=== PATIENT | male | born 1935 | race Caucasian/White ===

== ENCOUNTER 2020-03-24 21:21 | Inpatient (IN) ==
[2020-03-24 22:08] LABS: VBG HCO3 27 mEq/L (21-27); VBG PCO2 49 mmHg (41-51); VBG PH 7.35 pH Units (7.32-7.42); VBG PO2 38 mmHg (25-50)
[2020-03-24 22:10] LABS: Basophils % 0.1 %; Eosinophils % 0.1 %; Hemoglobin 15.7 g/dL (12.9-16.9); Immature Granulocytes % 0.4 % (0-4); Lymphocytes # 1.1 K/mcL (0.6-4.6); Lymphocytes % 6.7 %; Mean Corpuscular HGB Conc 32.7 g/dL (31.6-35.5); Mean Corpuscular Hemoglobin 31.3 pg (28.0-33.3); Mean Corpuscular Volume 95.6 fL (83.0-100.0); Mean Platelet Volume 11.5 fL (9.4-12.4); Monocytes # 0.9 K/mcL (0.0-1.3); Monocytes % 5.8 %; Neutrophils # 13.9 K/mcL (1.6-8.9); Platelet Count 172 K/mcL (140-400); Red Blood Count 5.02 M/mcL (4.19-5.50); Red Cell Distribution Width 12.9 % (11.5-14.5); Segmented Neutrophils % 86.9 %
[2020-03-24 22:11] LABS: INR 1.3; Prothrombin Time 14.3 Seconds (9.4-12.1)
[2020-03-24 22:14] LABS: Activated Partial Thrombo Time 30.3 Seconds (26.0-36.0)
[2020-03-24 22:19] LABS: Amphetamine Screen,Urine Negative ng/mL (Cutoff=1000); Barbiturate Screen,Urine Negative ng/mL (Cutoff=200); Benzodiazepines Screen,Urine Positive ng/mL (Cutoff=200); Cannabinoid Screen,Urine Negative ng/mL (Cutoff = 50); Cocaine Screen,Urine Negative ng/mL (Cutoff= 300); Opiate Screen,Urine Negative ng/mL (Cutoff=300); Phencyclidine Screen,Urine Negative ng/mL (Cutoff=25)
[2020-03-24 22:22] LABS: Bilirubin,Urine Negative (Negative); Blood,Urine Negative (Negative); Clarity,Urine Clear (Clear); Color,Urine Yellow (Yellow); Glucose,Urine (UA) 500 mg/dL (Normal); Ketones,Urine Negative (Negative); Leukocyte Esterase,Urine Trace (Negative); Nitrite,Urine Positive (Negative); Protein,Urine Negative (Neg-Trace); Specific Gravity,Urine 1.019 (1.010-1.025); Urobilinogen,Urine Normal (Normal)
[2020-03-24 22:24] LABS: Alkaline Phosphatase 80 Units/L (34-104); Aspartate Amino Transferase 11 Units/L (13-39); BUN/Creatinine Ratio 15 (6-26); Bilirubin,Direct 0.3 mg/dL (0.0-0.2); Bilirubin,Indirect 0.8 mg/dL (0.0-1.0); Bilirubin,Total 1.1 mg/dL (0.3-1.0); Blood Urea Nitrogen 13 mg/dL (8-23); Calcium 9.4 mg/dL (8.6-10.3); Carbon Dioxide 25 mEq/L (23-29); Chloride 103 mEq/L (98-107); Glucose 123 mg/dL (70-105); Osmolality,Calculated 287 (280-300); Potassium 3.7 mEq/L (3.5-5.1); Sodium 138 mEq/L (136-145); eGFR For African Americans > 60 (> 60); eGFR For Non-African Americans > 60 (> 60)
[2020-03-24 22:25] LABS: Alanine Aminotransferase 4 Units/L (7-52); Albumin 4.2 g/dL (3.5-5.7); Albumin/Globulin Ratio 1.4 (1.1-2.2); Creatine Kinase 60 Units/L (30-223); Ethanol < 10 mg/dL (Less than 10); Total Protein 7.2 g/dL (6.4-8.9); Troponin I < 0.03 ng/mL (< 0.04)
[2020-03-24 22:38] LABS: Thyroid Stimulating Hormone 1.435 mcIU/mL (0.340-5.600)
[2020-03-24] MEDS ORDERED: cefTRIAXone 1,000 MG in 0.9 % Sodium Chloride Mini Bag 100 ML IVPB ONE (22:54)
[2020-03-24] MEDS ORDERED: 0.9 % Sodium Chloride 1,000 ML IV ONE (22:54)
[2020-03-24 23:58] LABS: Adenovirus Not Detected (Not Detect); Bordetella Pertussis Not Detected (Not Detect); Coronavirus 229E Not Detected (Not Detect); Coronavirus HKU1 Not Detected (Not Detect); Coronavirus NL63 Not Detected (Not Detect); Coronavirus OC43 Not Detected (Not Detect); Human Metapneumovirus Not Detected (Not Detect); Human Rhinovirus/Enterovirus Not Detected (Not Detect); Influenza A Subtype 2009 H1 Not Detected (Not Detect); Influenza B Not Detected (Not Detect); Parainfluenza Virus 1 Not Detected (Not Detect); Parainfluenza Virus 2 Not Detected (Not Detect); Parainfluenza Virus 3 Not Detected (Not Detect); Parainfluenza Virus 4 Not Detected (Not Detect); Respiratory Syncytial Virus Not Detected (Not Detect)
[2020-03-24 23:59] LABS: Chlamydophila pneumoniae Not Detected (Not Detect); Mycoplasma pneumoniae Not Detected (Not Detect)
[2020-03-25] MEDS ORDERED: Naloxone 0.4 MG/ML INJ IVP PRN (00:16)
[2020-03-25] MEDS ORDERED: D5% in Water 1,000 ML IVC PRN (00:27)
[2020-03-25] MEDS ORDERED: Dextrose Gel 15 GM/37.5 ML TUBE PO PRN ×2 (00:27)
[2020-03-25] MEDS ORDERED: *HR* Dextrose 50 % in Water (Vial) 50 ML VIAL IVP PRN (00:27)
[2020-03-25] MEDS ORDERED: 0.9 % Sodium Chloride 1,000 ML IVC SCH (00:30)
[2020-03-25] MEDS: Insulin LISPRO 300 UNITS/3 ML VIAL SQ SCH ×4 (02:13→16:19)
[2020-03-25 02:31] LABS: Basophils # 0.1 K/mcL (0.0-0.2); Basophils % 0.3 %; Eosinophils % 0.1 %; Immature Granulocytes % 0.4 % (0-4); Lymphocytes # 1.6 K/mcL (0.6-4.6); Lymphocytes % 10.4 %; Mean Corpuscular Hemoglobin 30.7 pg (28.0-33.3); Mean Corpuscular Volume 95.9 fL (83.0-100.0); Mean Platelet Volume 11.6 fL (9.4-12.4); Platelet Count 165 K/mcL (140-400); Red Blood Count 4.59 M/mcL (4.19-5.50); Red Cell Distribution Width 12.9 % (11.5-14.5); Segmented Neutrophils % 82.8 %; White Blood Count 15.7 K/mcL (4.3-11.1)
[2020-03-25 02:41] LABS: Hemoglobin 14.1 g/dL (12.9-16.9)
[2020-03-25 02:45] LABS: BUN/Creatinine Ratio 14 (6-26); Blood Urea Nitrogen 11 mg/dL (8-23); Calcium 8.6 mg/dL (8.6-10.3); Carbon Dioxide 25 mEq/L (23-29); Chloride 106 mEq/L (98-107); Glucose 107 mg/dL (70-105); Osmolality,Calculated 288 (280-300); Potassium 3.6 mEq/L (3.5-5.1); Sodium 139 mEq/L (136-145); eGFR For African Americans > 60 (> 60); eGFR For Non-African Americans > 60 (> 60)
[2020-03-25] MEDS: *HR* Heparin 5,000 UNIT/ML VIAL SQ SCH ×3 (06:07→23:01)
[2020-03-25] MEDS: cefTRIAXone 1,000 MG in 0.9 % Sodium Chloride Mini Bag 100 ML IVPB SCH (10:45)
[2020-03-25] MEDS: ALPRAZolam 1 MG TABLET PO PRN (11:06)
[2020-03-25] MEDS ORDERED: cefTRIAXone 1,000 MG in 0.9 % Sodium Chloride Mini Bag 100 ML IVPB SCH (22:00)
[2020-03-26] MEDS: *HR* Heparin 5,000 UNIT/ML VIAL SQ SCH ×3 (05:24→19:33)
[2020-03-26 05:37] LABS: Eosinophils % 1.3 %; Hematocrit 44.1 % (37.5-50.1); Hemoglobin 14.5 g/dL (12.9-16.9); Immature Granulocytes % 0.3 % (0-4); Lymphocytes % 17.8 %; Mean Corpuscular HGB Conc 32.9 g/dL (31.6-35.5); Mean Corpuscular Hemoglobin 31.3 pg (28.0-33.3); Mean Platelet Volume 11.3 fL (9.4-12.4); Platelet Count 150 K/mcL (140-400); Red Blood Count 4.64 M/mcL (4.19-5.50); Red Cell Distribution Width 12.7 % (11.5-14.5); Segmented Neutrophils % 73.2 %; White Blood Count 7.9 K/mcL (4.3-11.1)
[2020-03-26 05:38] LABS: Basophils % 0.4 %; Eosinophils # 0.1 K/mcL (0.0-0.6); Lymphocytes # 1.4 K/mcL (0.6-4.6); Monocytes # 0.6 K/mcL (0.0-1.3); Neutrophils # 5.8 K/mcL (1.6-8.9)
[2020-03-26] MEDS: Insulin LISPRO 300 UNITS/3 ML VIAL SQ SCH ×3 (09:05→17:26)
[2020-03-26] MEDS: cefTRIAXone 1,000 MG in 0.9 % Sodium Chloride Mini Bag 100 ML IVPB SCH (09:51)
[2020-03-26] MEDS: ALPRAZolam 1 MG TABLET PO PRN (10:01)
[2020-03-26] MEDS: Carbidopa/Levodopa 25/100 TABLET PO SCH ×2 (17:32→19:33)
[2020-03-26] MEDS: ALPRAZolam 1 MG TABLET PO SCH ×2 (17:32→19:33)
[2020-03-26] MEDS: rOPINIRole 1 MG TABLET PO SCH (19:33)
[2020-03-27] MEDS: *HR* Heparin 5,000 UNIT/ML VIAL SQ SCH ×2 (05:28→12:12)
[2020-03-27] MEDS: Carbidopa/Levodopa 25/100 TABLET PO SCH ×2 (08:50→15:11)
[2020-03-27] MEDS: ALPRAZolam 1 MG TABLET PO SCH ×2 (08:50→15:11)
[2020-03-27] MEDS: Insulin LISPRO 300 UNITS/3 ML VIAL SQ SCH ×3 (08:58→16:31)
[2020-03-27] MEDS ORDERED: QUEtiapine Fumarate 25 MG TABLET PO ONE (11:37)
[2020-03-27] MEDS: cefTRIAXone 1,000 MG in 0.9 % Sodium Chloride Mini Bag 100 ML IVPB SCH (12:27)
[2020-03-28] MEDS: rOPINIRole 1 MG TABLET PO SCH ×2 (01:47→21:05)
[2020-03-28] MEDS: ALPRAZolam 1 MG TABLET PO SCH ×4 (01:47→21:05)
[2020-03-28] MEDS: Carbidopa/Levodopa 25/100 TABLET PO SCH ×4 (01:48→21:05)
[2020-03-28] MEDS: *HR* Heparin 5,000 UNIT/ML VIAL SQ SCH ×4 (01:48→21:06)
[2020-03-28] MEDS: QUEtiapine Fumarate 25 MG TABLET PO SCH ×2 (01:48→21:05)
[2020-03-28] MEDS ORDERED: ALPRAZolam 1 MG TABLET PO SCH ×4 (09:00→21:00)
[2020-03-28] MEDS: Insulin LISPRO 300 UNITS/3 ML VIAL SQ SCH ×3 (09:07→18:28)
[2020-03-28] MEDS: *HR* LORazepam 2 MG/ML VIAL IVP PRN (15:35)
[2020-03-29] MEDS: *HR* LORazepam 2 MG/ML VIAL IVP PRN ×2 (00:10→14:45)
[2020-03-29] MEDS: *HR* Heparin 5,000 UNIT/ML VIAL SQ SCH ×3 (05:55→20:32)
[2020-03-29] MEDS: Insulin LISPRO 300 UNITS/3 ML VIAL SQ SCH ×3 (10:32→16:13)
[2020-03-29] MEDS: ALPRAZolam 1 MG TABLET PO SCH ×3 (10:39→20:49)
[2020-03-29] MEDS: Carbidopa/Levodopa 25/100 TABLET PO SCH ×3 (10:39→20:49)
[2020-03-29] MEDS: rOPINIRole 1 MG TABLET PO SCH (20:49)
[2020-03-29] MEDS: QUEtiapine Fumarate 25 MG TABLET PO SCH (20:49)
[2020-03-30] MEDS: *HR* LORazepam 2 MG/ML VIAL IVP PRN ×2 (01:49→08:07)
[2020-03-30] MEDS: *HR* Heparin 5,000 UNIT/ML VIAL SQ SCH ×3 (05:31→20:51)
[2020-03-30 06:09] LABS: Basophils % 0.4 %; Eosinophils # 0.2 K/mcL (0.0-0.6); Eosinophils % 3.3 %; Hematocrit 46.7 % (37.5-50.1); Hemoglobin 15.5 g/dL (12.9-16.9); Immature Granulocytes % 0.3 % (0-4); Lymphocytes # 1.3 K/mcL (0.6-4.6); Lymphocytes % 18.7 %; Mean Corpuscular HGB Conc 33.2 g/dL (31.6-35.5); Mean Corpuscular Hemoglobin 30.8 pg (28.0-33.3); Mean Corpuscular Volume 92.8 fL (83.0-100.0); Mean Platelet Volume 11.2 fL (9.4-12.4); Monocytes # 0.6 K/mcL (0.0-1.3); Monocytes % 9.2 %; Neutrophils # 4.6 K/mcL (1.6-8.9); Platelet Count 169 K/mcL (140-400); Red Blood Count 5.03 M/mcL (4.19-5.50); Red Cell Distribution Width 12.3 % (11.5-14.5); Segmented Neutrophils % 68.1 %; White Blood Count 6.8 K/mcL (4.3-11.1)
[2020-03-30 06:28] LABS: BUN/Creatinine Ratio 20 (6-26); Blood Urea Nitrogen 14 mg/dL (8-23); Calcium 8.9 mg/dL (8.6-10.3); Carbon Dioxide 27 mEq/L (23-29); Chloride 100 mEq/L (98-107); Glucose 85 mg/dL (70-105); Osmolality,Calculated 282 (280-300); Potassium 3.8 mEq/L (3.5-5.1); Sodium 136 mEq/L (136-145); eGFR For African Americans > 60 (> 60); eGFR For Non-African Americans > 60 (> 60)
[2020-03-30] MEDS: Carbidopa/Levodopa 25/100 TABLET PO SCH ×4 (08:06→20:59)
[2020-03-30] MEDS: ALPRAZolam 1 MG TABLET PO SCH ×3 (08:06→20:59)
[2020-03-30] MEDS: Insulin LISPRO 300 UNITS/3 ML VIAL SQ SCH ×3 (10:01→16:52)
[2020-03-30] MEDS: QUEtiapine Fumarate 25 MG TABLET PO SCH (20:59)
[2020-03-30] MEDS: rOPINIRole 1 MG TABLET PO SCH (20:59)
[2020-03-31] MEDS: *HR* Heparin 5,000 UNIT/ML VIAL SQ SCH ×3 (05:59→23:50)
[2020-03-31] MEDS: ALPRAZolam 1 MG TABLET PO SCH ×2 (08:20→23:50)
[2020-03-31] MEDS: Carbidopa/Levodopa 25/100 TABLET PO SCH ×3 (08:20→23:49)
[2020-03-31] MEDS: Insulin LISPRO 300 UNITS/3 ML VIAL SQ SCH ×3 (08:20→17:23)
[2020-03-31] MEDS: rOPINIRole 1 MG TABLET PO SCH (23:49)
[2020-03-31] MEDS: QUEtiapine Fumarate 25 MG TABLET PO SCH (23:49)
[2020-03-31] MEDS: Latanoprost 2.5 ML BOTTLE LEFT EYE SCH (23:50)
[2020-04-01] MEDS: ALPRAZolam 1 MG TABLET PO SCH ×2 (08:05→16:34)
[2020-04-01] MEDS: *HR* Heparin 5,000 UNIT/ML VIAL SQ SCH ×3 (08:06→19:09)
[2020-04-01] MEDS: Carbidopa/Levodopa 25/100 TABLET PO SCH ×3 (08:06→18:54)
[2020-04-01] MEDS: Insulin LISPRO 300 UNITS/3 ML VIAL SQ SCH ×3 (08:06→17:04)
[2020-04-01] MEDS: QUEtiapine Fumarate 25 MG TABLET PO SCH (16:34)
[2020-04-01] MEDS ORDERED: Haloperidol Lactate 5 MG/ML VIAL IVP PRN (16:55)
[2020-04-01] MEDS: Haloperidol Lactate 5 MG/ML VIAL IM PRN (18:30)
[2020-04-01] MEDS: rOPINIRole 1 MG TABLET PO SCH (18:54)
[2020-04-01] MEDS: Latanoprost 2.5 ML BOTTLE LEFT EYE SCH (19:10)
[2020-04-02] MEDS: *HR* Heparin 5,000 UNIT/ML VIAL SQ SCH ×3 (06:09→20:56)
[2020-04-02] MEDS: Insulin LISPRO 300 UNITS/3 ML VIAL SQ SCH ×3 (08:40→17:44)
[2020-04-02] MEDS: Carbidopa/Levodopa 25/100 TABLET PO SCH ×3 (08:40→20:56)
[2020-04-02] MEDS: ALPRAZolam 1 MG TABLET PO SCH ×2 (08:40→17:44)
[2020-04-02] MEDS: rOPINIRole 1 MG TABLET PO SCH (17:44)
[2020-04-02] MEDS: QUEtiapine Fumarate 25 MG TABLET PO SCH (17:44)
[2020-04-02] MEDS: Latanoprost 2.5 ML BOTTLE LEFT EYE SCH (20:56)
[2020-04-03] MEDS: *HR* Heparin 5,000 UNIT/ML VIAL SQ SCH ×3 (06:08→20:12)
[2020-04-03] MEDS: ALPRAZolam 1 MG TABLET PO SCH ×2 (10:25→20:06)
[2020-04-03] MEDS: Carbidopa/Levodopa 25/100 TABLET PO SCH ×3 (10:25→20:06)
[2020-04-03] MEDS: Insulin LISPRO 300 UNITS/3 ML VIAL SQ SCH ×3 (10:48→17:11)
[2020-04-03] MEDS: rOPINIRole 1 MG TABLET PO SCH (20:06)
[2020-04-03] MEDS: QUEtiapine Fumarate 25 MG TABLET PO SCH (20:07)
[2020-04-04] MEDS: Latanoprost 2.5 ML BOTTLE LEFT EYE SCH ×2 (00:40→21:17)
[2020-04-04] MEDS: *HR* Heparin 5,000 UNIT/ML VIAL SQ SCH ×3 (05:16→21:19)
[2020-04-04] MEDS: Insulin LISPRO 300 UNITS/3 ML VIAL SQ SCH ×3 (07:47→16:43)
[2020-04-04] MEDS: Carbidopa/Levodopa 25/100 TABLET PO SCH ×3 (07:51→21:18)
[2020-04-04] MEDS: ALPRAZolam 1 MG TABLET PO SCH ×2 (07:51→21:18)
[2020-04-04] MEDS: QUEtiapine Fumarate 25 MG TABLET PO SCH (21:18)
[2020-04-04] MEDS: rOPINIRole 1 MG TABLET PO SCH (21:18)
[2020-04-04] MEDS: Haloperidol Lactate 5 MG/ML VIAL IM PRN (23:53)
[2020-04-05] MEDS ORDERED: *HR* LORazepam 2 MG/ML VIAL IM PRN (00:23)
[2020-04-05] MEDS: *HR* Heparin 5,000 UNIT/ML VIAL SQ SCH ×3 (04:53→22:21)
[2020-04-05] MEDS: ALPRAZolam 1 MG TABLET PO SCH ×2 (07:59→22:21)
[2020-04-05] MEDS: Carbidopa/Levodopa 25/100 TABLET PO SCH ×3 (07:59→22:22)
[2020-04-05] MEDS: Insulin LISPRO 300 UNITS/3 ML VIAL SQ SCH ×3 (08:00→17:07)
[2020-04-05] MEDS: rOPINIRole 1 MG TABLET PO SCH (22:21)
[2020-04-05] MEDS: QUEtiapine Fumarate 25 MG TABLET PO SCH (22:22)
[2020-04-05] MEDS: Latanoprost 2.5 ML BOTTLE LEFT EYE SCH (22:22)
[2020-04-06] MEDS: *HR* Heparin 5,000 UNIT/ML VIAL SQ SCH ×2 (06:10→14:45)
[2020-04-06] MEDS: Insulin LISPRO 300 UNITS/3 ML VIAL SQ SCH ×3 (08:23→17:57)
[2020-04-06] MEDS: ALPRAZolam 1 MG TABLET PO SCH ×2 (08:24→20:50)
[2020-04-06] MEDS: Carbidopa/Levodopa 25/100 TABLET PO SCH ×3 (08:24→20:50)
[2020-04-06] MEDS: QUEtiapine Fumarate 25 MG TABLET PO SCH (20:50)
[2020-04-06] MEDS: rOPINIRole 1 MG TABLET PO SCH (20:50)
[2020-04-06] MEDS: Latanoprost 2.5 ML BOTTLE LEFT EYE SCH (20:50)
[2020-04-07] MEDS: Insulin LISPRO 300 UNITS/3 ML VIAL SQ SCH ×3 (07:52→16:15)
[2020-04-07] MEDS: Carbidopa/Levodopa 25/100 TABLET PO SCH ×3 (09:58→20:15)
[2020-04-07] MEDS: ALPRAZolam 1 MG TABLET PO SCH ×2 (09:58→20:14)
[2020-04-07] MEDS: QUEtiapine Fumarate 25 MG TABLET PO SCH (20:14)
[2020-04-07] MEDS: rOPINIRole 1 MG TABLET PO SCH (20:14)
[2020-04-07] MEDS: Latanoprost 2.5 ML BOTTLE LEFT EYE SCH (20:19)
[2020-04-08] MEDS: ALPRAZolam 1 MG TABLET PO SCH (09:17)
[2020-04-08] MEDS: Insulin LISPRO 300 UNITS/3 ML VIAL SQ SCH ×3 (09:18→16:51)
[2020-04-08] MEDS: Carbidopa/Levodopa 25/100 TABLET PO SCH ×3 (09:18→20:19)
[2020-04-08] MEDS: rOPINIRole 1 MG TABLET PO SCH (20:19)
[2020-04-08] MEDS: Latanoprost 2.5 ML BOTTLE LEFT EYE SCH (20:19)
[2020-04-08] MEDS: ALPRAZolam 0.5 MG TABLET PO SCH (20:19)
[2020-04-08] MEDS: QUEtiapine Fumarate 25 MG TABLET PO SCH (20:19)
[2020-04-09] MEDS: ALPRAZolam 0.5 MG TABLET PO SCH ×2 (09:43→21:26)
[2020-04-09] MEDS: Carbidopa/Levodopa 25/100 TABLET PO SCH ×3 (09:43→21:26)
[2020-04-09] MEDS: Insulin LISPRO 300 UNITS/3 ML VIAL SQ SCH ×3 (09:43→17:09)
[2020-04-09] MEDS: QUEtiapine Fumarate 25 MG TABLET PO SCH (21:26)
[2020-04-09] MEDS: rOPINIRole 1 MG TABLET PO SCH (21:26)
[2020-04-09] MEDS: Latanoprost 2.5 ML BOTTLE LEFT EYE SCH (21:26)
[2020-04-10] MEDS: Insulin LISPRO 300 UNITS/3 ML VIAL SQ SCH ×2 (07:56→12:09)
[2020-04-10] MEDS: ALPRAZolam 0.5 MG TABLET PO SCH (07:57)
[2020-04-10] MEDS: Carbidopa/Levodopa 25/100 TABLET PO SCH (07:58)
[2020-04-10 16:26] VITALS: BP 122/65
[2020-04-10] MEDS: QUEtiapine Fumarate 25 MG TABLET PO SCH (17:16)
== END 2020-04-10 17:59 | disposition home health service (06) | DRG 871 ==
LOC: EMEROOARM 21:21 → 3BNU 21:21 → SUATTDRO 03-25 00:12 → 3BNU 03-25 00:55 → SUATTDRO 03-31 10:29
PROVIDERS: ADMIT Student in an Organized Health Care Education/Training Program; ATTEND Nurse Practitioner Adult Health

== ENCOUNTER 2021-10-15 11:09 | Observation (INO) ==
[2021-10-15] MEDS ORDERED: Tdap (Boostrix) Vaccine 0.5 ML SYRINGE IM ONE (12:03)
[2021-10-15 13:26] LABS: Basophils % 0.2 %; Eosinophils % 0.4 %; Hematocrit 41.8 % (37.5-50.1); Hemoglobin 14.5 g/dL (12.9-16.9); Immature Granulocytes % 0.4 % (0-4); Lymphocytes # 0.7 K/mcL (0.6-4.6); Lymphocytes % 12.4 %; Mean Corpuscular HGB Conc 34.7 g/dL (31.6-35.5); Mean Corpuscular Hemoglobin 30.8 pg (28.0-33.3); Mean Corpuscular Volume 88.7 fL (83.0-100.0); Mean Platelet Volume 10.6 fL (9.4-12.4); Monocytes # 0.4 K/mcL (0.0-1.3); Monocytes % 7.4 %; Neutrophils # 4.4 K/mcL (1.6-8.9); Platelet Count 215 K/mcL (140-400); Red Blood Count 4.71 M/mcL (4.19-5.50); Red Cell Distribution Width 13.2 % (11.5-14.5); Segmented Neutrophils % 79.2 %; White Blood Count 5.6 K/mcL (4.3-11.1)
[2021-10-15 13:40] LABS: BUN/Creatinine Ratio 16 (6-26); Blood Urea Nitrogen 12 mg/dL (8-23); Calcium 8.5 mg/dL (8.6-10.3); Carbon Dioxide 29 mEq/L (23-29); Chloride 98 mEq/L (98-107); Glucose 143 mg/dL (70-105); Osmolality,Calculated 282 (280-300); Potassium 3.1 mEq/L (3.5-5.1); Sodium 135 mEq/L (136-145); eGFR For African Americans > 60 (> 60); eGFR For Non-African Americans > 60 (> 60)
[2021-10-15] MEDS ORDERED: Potassium Chloride Elixir 20 MEQ/15 ML UDC PO ONE (13:59)
[2021-10-15 14:08] LABS: Reactive Lymphocytes Present (Not Present)
[2021-10-15 15:47] LABS: Amorphous Sediment,Urine Few per hpf (None-Few); Bilirubin,Urine Negative (Negative); Blood,Urine Negative (Negative); Clarity,Urine Clear (Clear); Color,Urine Yellow (Yellow); Glucose,Urine (UA) 100 mg/dL (Normal); Ketones,Urine Negative (Negative); Leukocyte Esterase,Urine Negative (Negative); Mucus,Urine Few per lpf (None-Few); Nitrite,Urine Positive (Negative); PH,Urine 6.5 pH Units (5.0-8.0); Protein,Urine Trace mg/dL (Neg-Trace); Specific Gravity,Urine 1.016 (1.010-1.025); Squamous Epithelial Cell,Urine Few per hpf (None-Few)
[2021-10-15] MEDS ORDERED: cephALEXin 500 MG CAPSULE PO ONE (15:52)
[2021-10-15 16:01] LABS: Amphetamine Screen,Urine Negative ng/mL (Cutoff=1000); Barbiturate Screen,Urine Negative ng/mL (Cutoff=200); Benzodiazepines Screen,Urine Positive ng/mL (Cutoff=200); Cannabinoid Screen,Urine Negative ng/mL (Cutoff = 50); Cocaine Screen,Urine Negative ng/mL (Cutoff= 300); Opiate Screen,Urine Negative ng/mL (Cutoff=300); Phencyclidine Screen,Urine Negative ng/mL (Cutoff=25)
[2021-10-15 16:08] LABS: Acetaminophen < 10 mcg/mL (10-20); Alanine Aminotransferase 23 Units/L (7-52); Albumin 3.6 g/dL (3.5-5.7); Albumin/Globulin Ratio 1.1 (1.1-2.2); Alkaline Phosphatase 76 Units/L (34-104); Aspartate Amino Transferase 38 Units/L (13-39); Bilirubin,Direct 0.3 mg/dL (0.0-0.2); Bilirubin,Indirect 0.8 mg/dL (0.0-1.0); Bilirubin,Total 1.1 mg/dL (0.3-1.0); Chol/HDL Ratio 3.5 (0-4.9); Cholesterol 98 mg/dL (< 200); Ethanol < 10 mg/dL (Less than 10); Globulin 3.2 g/dL (2.4-3.5); HDL Cholesterol 28 mg/dL (40-59); LDL Cholesterol,Calculated 50 mg/dL (< 100); Salicylate < 2.5 mg/dL (15.0-30.0); Total Protein 6.8 g/dL (6.4-8.9); Triglycerides 99 mg/dL (< 150)
[2021-10-15 16:12] LABS: Thyroid Stimulating Hormone 3.444 mcIU/mL (0.340-5.600)
[2021-10-15 18:15] LABS: Estimated Average Glucose 140 mg/dl; Hemoglobin A1C 6.5 %
[2021-10-15] MEDS ORDERED: Acetaminophen 325 MG TABLET PO PRN (19:51)
[2021-10-15] MEDS ORDERED: Naloxone 0.4 MG/ML INJ IVP PRN (19:51)
[2021-10-15] MEDS ORDERED: Ondansetron 4 MG/2 ML VIAL IVP PRN (19:51)
[2021-10-15] MEDS ORDERED: ALPRAZolam 1 MG TABLET PO PRN (20:30)
[2021-10-15] MEDS ORDERED: Carbidopa/Levodopa 25/100 TABLET PO SCH (21:00)
[2021-10-15] MEDS ORDERED: ALPRAZolam 1 MG TABLET PO SCH (21:00)
[2021-10-15] MEDS: rOPINIRole 1 MG TABLET PO SCH (21:57)
[2021-10-15] MEDS: Carbidopa/Levodopa 25/100 TABLET PO SCH (21:57)
[2021-10-15] MEDS: Melatonin 3 MG TABLET PO PRN (21:57)
[2021-10-15] MEDS: QUEtiapine Fumarate 25 MG TABLET PO SCH (22:36)
[2021-10-15] MEDS ORDERED: *HR* Dextrose 50 % in Water (Syg) 50 ML SYRINGE IVP PRN (23:26)
[2021-10-15] MEDS ORDERED: D5% in Water 1,000 ML IVC PRN (23:26)
[2021-10-15] MEDS ORDERED: Dextrose Gel 15 GM/37.5 ML TUBE PO PRN ×2 (23:26)
[2021-10-16 05:17] LABS: INR 1.3
[2021-10-16] MEDS: *HR* Enoxaparin 40 MG/0.4 ML SYRINGE SQ SCH (05:26)
[2021-10-16 05:34] LABS: BUN/Creatinine Ratio 18 (6-26); Blood Urea Nitrogen 11 mg/dL (8-23); Carbon Dioxide 26 mEq/L (23-29); Chloride 102 mEq/L (98-107); Glucose 115 mg/dL (70-105); Magnesium 2.2 mg/dL (1.6-2.6); Osmolality,Calculated 280 (280-300); Phosphorous 2.8 mg/dL (2.7-4.5); Potassium 3.2 mEq/L (3.5-5.1); Sodium 135 mEq/L (136-145); eGFR For African Americans > 60 (> 60); eGFR For Non-African Americans > 60 (> 60)
[2021-10-16 05:39] LABS: Influenza A PCR Negative (Negative); Influenza B PCR Negative (Negative); Resp. Syncytial Virus PCR Negative (Negative)
[2021-10-16 05:46] LABS: SARS-CoV-2 by PCR (In House) Positive (Negative)
[2021-10-16] MEDS ORDERED: Potassium Chloride Elixir 20 MEQ/15 ML UDC PO ONE (05:54)
[2021-10-16] MEDS ORDERED: Saliva Stimulant 44.3ml BOTTLE PO PRN (06:30)
[2021-10-16] MEDS ORDERED: Ipratropium 1 PUFF INHALER IH PRN (06:30)
[2021-10-16 07:01] LABS: Hematocrit 40.1 % (37.5-50.1); Hemoglobin 13.8 g/dL (12.9-16.9); Mean Corpuscular HGB Conc 34.4 g/dL (31.6-35.5); Mean Corpuscular Hemoglobin 30.9 pg (28.0-33.3); Mean Corpuscular Volume 89.7 fL (83.0-100.0); Mean Platelet Volume 10.8 fL (9.4-12.4); Platelet Count 237 K/mcL (140-400); Red Blood Count 4.47 M/mcL (4.19-5.50); Red Cell Distribution Width 13.2 % (11.5-14.5); White Blood Count 4.6 K/mcL (4.3-11.1)
[2021-10-16] MEDS: Carbidopa/Levodopa 25/100 TABLET PO SCH ×3 (07:55→19:53)
[2021-10-16] MEDS: Artificial Tears SOLN 15 ML BOTTLE BOTH EYES SCH ×4 (07:56→19:54)
[2021-10-16] MEDS: Lactobacillus 1 EACH CAP.SPRINK PO SCH ×2 (07:57→19:53)
[2021-10-16] MEDS: cefTRIAXone 1,000 MG in 0.9 % Sodium Chloride Mini Bag 100 ML IVPB SCH (08:08)
[2021-10-16] MEDS: Chlorhexidine Rinse 15 ML MOUTHWASH MM SCH ×2 (08:09→19:54)
[2021-10-16] MEDS: Multivit/Ca/Min/Fe/FA 1 TAB TABLET PO SCH ×2 (08:09→08:10)
[2021-10-16] MEDS: Cholecalciferol (D-3) 1,000 UNIT (25MCG) TABLET PO SCH (08:10)
[2021-10-16] MEDS: ALPRAZolam 1 MG TABLET PO SCH ×3 (08:11→19:53)
[2021-10-16] MEDS: Latanoprost 2.5 ML BOTTLE LEFT EYE SCH (08:11)
[2021-10-16] MEDS: QUEtiapine Fumarate 25 MG TABLET PO SCH (19:53)
[2021-10-16] MEDS: rOPINIRole 1 MG TABLET PO SCH (19:53)
[2021-10-16] MEDS: Melatonin 3 MG TABLET PO PRN (19:54)
[2021-10-17] MEDS: *HR* Enoxaparin 40 MG/0.4 ML SYRINGE SQ SCH (04:31)
[2021-10-17] MEDS: Chlorhexidine Rinse 15 ML MOUTHWASH MM SCH ×2 (08:53→19:57)
[2021-10-17] MEDS: Artificial Tears SOLN 15 ML BOTTLE BOTH EYES SCH ×4 (08:53→19:56)
[2021-10-17] MEDS: ALPRAZolam 1 MG TABLET PO SCH ×3 (08:53→19:56)
[2021-10-17] MEDS: Cholecalciferol (D-3) 1,000 UNIT (25MCG) TABLET PO SCH (08:53)
[2021-10-17] MEDS: cefTRIAXone 1,000 MG in 0.9 % Sodium Chloride Mini Bag 100 ML IVPB SCH (08:54)
[2021-10-17] MEDS: Lactobacillus 1 EACH CAP.SPRINK PO SCH ×2 (08:54→19:56)
[2021-10-17] MEDS: Multivit/Ca/Min/Fe/FA 1 TAB TABLET PO SCH ×2 (08:54→08:55)
[2021-10-17] MEDS: Carbidopa/Levodopa 25/100 TABLET PO SCH ×3 (08:54→19:56)
[2021-10-17] MEDS: Latanoprost 2.5 ML BOTTLE LEFT EYE SCH (08:55)
[2021-10-17] MEDS: rOPINIRole 1 MG TABLET PO SCH (19:56)
[2021-10-17] MEDS: Melatonin 3 MG TABLET PO PRN (19:56)
[2021-10-17] MEDS: QUEtiapine Fumarate 25 MG TABLET PO SCH (19:56)
[2021-10-18] MEDS: *HR* Enoxaparin 40 MG/0.4 ML SYRINGE SQ SCH (05:27)
[2021-10-18 05:53] LABS: BUN/Creatinine Ratio 16 (6-26); Blood Urea Nitrogen 10 mg/dL (8-23); Calcium 8.6 mg/dL (8.6-10.3); Carbon Dioxide 26 mEq/L (23-29); Chloride 102 mEq/L (98-107); Glucose 96 mg/dL (70-105); Osmolality,Calculated 281 (280-300); Potassium 3.6 mEq/L (3.5-5.1); Sodium 136 mEq/L (136-145); eGFR For African Americans > 60 (> 60); eGFR For Non-African Americans > 60 (> 60)
[2021-10-18] MEDS: Artificial Tears SOLN 15 ML BOTTLE BOTH EYES SCH ×4 (10:15→22:45)
[2021-10-18] MEDS: cefTRIAXone 1,000 MG in 0.9 % Sodium Chloride Mini Bag 100 ML IVPB SCH (10:16)
[2021-10-18] MEDS: Chlorhexidine Rinse 15 ML MOUTHWASH MM SCH ×3 (10:22→22:48)
[2021-10-18] MEDS: Multivit/Ca/Min/Fe/FA 1 TAB TABLET PO SCH ×2 (10:23)
[2021-10-18] MEDS: ALPRAZolam 1 MG TABLET PO SCH ×3 (10:24→22:42)
[2021-10-18] MEDS: Lactobacillus 1 EACH CAP.SPRINK PO SCH ×2 (10:24→22:42)
[2021-10-18] MEDS: Cholecalciferol (D-3) 1,000 UNIT (25MCG) TABLET PO SCH (10:24)
[2021-10-18] MEDS: Carbidopa/Levodopa 25/100 TABLET PO SCH ×3 (10:24→22:41)
[2021-10-18] MEDS: Latanoprost 2.5 ML BOTTLE LEFT EYE SCH (10:49)
[2021-10-18] MEDS: QUEtiapine Fumarate 25 MG TABLET PO SCH (22:41)
[2021-10-18] MEDS: rOPINIRole 1 MG TABLET PO SCH (22:41)
[2021-10-19] MEDS: *HR* Enoxaparin 40 MG/0.4 ML SYRINGE SQ SCH (06:30)
[2021-10-19] MEDS: Carbidopa/Levodopa 25/100 TABLET PO SCH ×3 (09:03→21:49)
[2021-10-19] MEDS: Multivit/Ca/Min/Fe/FA 1 TAB TABLET PO SCH ×2 (09:04)
[2021-10-19] MEDS: Cholecalciferol (D-3) 1,000 UNIT (25MCG) TABLET PO SCH (09:04)
[2021-10-19] MEDS: Lactobacillus 1 EACH CAP.SPRINK PO SCH ×2 (09:04→21:49)
[2021-10-19] MEDS: ALPRAZolam 1 MG TABLET PO SCH ×3 (09:04→21:49)
[2021-10-19] MEDS: Chlorhexidine Rinse 15 ML MOUTHWASH MM SCH ×2 (09:10→21:49)
[2021-10-19] MEDS: Latanoprost 2.5 ML BOTTLE LEFT EYE SCH (09:11)
[2021-10-19] MEDS: Artificial Tears SOLN 15 ML BOTTLE BOTH EYES SCH ×4 (09:11→21:49)
[2021-10-19] MEDS: QUEtiapine Fumarate 25 MG TABLET PO SCH (21:48)
[2021-10-19] MEDS: rOPINIRole 1 MG TABLET PO SCH (21:49)
[2021-10-19] MEDS: Melatonin 3 MG TABLET PO PRN (21:49)
[2021-10-20] MEDS: *HR* Enoxaparin 40 MG/0.4 ML SYRINGE SQ SCH (05:15)
[2021-10-20] MEDS: Carbidopa/Levodopa 25/100 TABLET PO SCH ×3 (08:08→21:12)
[2021-10-20] MEDS: Lactobacillus 1 EACH CAP.SPRINK PO SCH ×2 (08:08→21:12)
[2021-10-20] MEDS: Cholecalciferol (D-3) 1,000 UNIT (25MCG) TABLET PO SCH (08:08)
[2021-10-20] MEDS: Artificial Tears SOLN 15 ML BOTTLE BOTH EYES SCH ×4 (08:09→21:11)
[2021-10-20] MEDS: Chlorhexidine Rinse 15 ML MOUTHWASH MM SCH ×2 (08:09→21:12)
[2021-10-20] MEDS: Multivit/Ca/Min/Fe/FA 1 TAB TABLET PO SCH ×2 (08:09)
[2021-10-20] MEDS: ALPRAZolam 1 MG TABLET PO SCH ×3 (08:09→21:12)
[2021-10-20] MEDS: Latanoprost 2.5 ML BOTTLE LEFT EYE SCH (09:54)
[2021-10-20] MEDS: QUEtiapine Fumarate 25 MG TABLET PO SCH (21:12)
[2021-10-20] MEDS: rOPINIRole 1 MG TABLET PO SCH (21:12)
[2021-10-21] MEDS: *HR* Enoxaparin 40 MG/0.4 ML SYRINGE SQ SCH (05:04)
[2021-10-21] MEDS: ALPRAZolam 1 MG TABLET PO SCH ×3 (08:22→21:11)
[2021-10-21] MEDS: Cholecalciferol (D-3) 1,000 UNIT (25MCG) TABLET PO SCH (08:22)
[2021-10-21] MEDS: Artificial Tears SOLN 15 ML BOTTLE BOTH EYES SCH ×4 (08:22→21:11)
[2021-10-21] MEDS: Multivit/Ca/Min/Fe/FA 1 TAB TABLET PO SCH ×2 (08:23)
[2021-10-21] MEDS: Carbidopa/Levodopa 25/100 TABLET PO SCH ×3 (08:23→21:11)
[2021-10-21] MEDS: Chlorhexidine Rinse 15 ML MOUTHWASH MM SCH ×2 (08:23→21:11)
[2021-10-21] MEDS: Lactobacillus 1 EACH CAP.SPRINK PO SCH ×2 (08:23→21:11)
[2021-10-21] MEDS: Latanoprost 2.5 ML BOTTLE LEFT EYE SCH (08:24)
[2021-10-21] MEDS ORDERED: *HR* LORazepam 2 MG/ML VIAL IVP ONE (09:33)
[2021-10-21 09:40] LABS: Basophils % 0.6 %; Eosinophils # 0.1 K/mcL (0.0-0.6); Eosinophils % 2.2 %; Hematocrit 42.5 % (37.5-50.1); Hemoglobin 14.2 g/dL (12.9-16.9); Immature Granulocytes % 0.4 % (0-4); Mean Corpuscular HGB Conc 33.4 g/dL (31.6-35.5); Mean Corpuscular Hemoglobin 30.2 pg (28.0-33.3); Mean Corpuscular Volume 90.4 fL (83.0-100.0); Mean Platelet Volume 10.7 fL (9.4-12.4); Monocytes # 0.6 K/mcL (0.0-1.3); Monocytes % 11.4 %; Neutrophils # 3.7 K/mcL (1.6-8.9); Platelet Count 236 K/mcL (140-400); Red Cell Distribution Width 13.2 % (11.5-14.5); Segmented Neutrophils % 67.4 %; White Blood Count 5.5 K/mcL (4.3-11.1)
[2021-10-21 09:57] LABS: BUN/Creatinine Ratio 13 (6-26); Blood Urea Nitrogen 10 mg/dL (8-23); Calcium 8.6 mg/dL (8.6-10.3); Carbon Dioxide 27 mEq/L (23-29); Chloride 100 mEq/L (98-107); Glucose 95 mg/dL (70-105); Osmolality,Calculated 275 (280-300); Potassium 3.9 mEq/L (3.5-5.1); Sodium 133 mEq/L (136-145); eGFR For African Americans > 60 (> 60); eGFR For Non-African Americans > 60 (> 60)
[2021-10-21] MEDS: rOPINIRole 1 MG TABLET PO SCH (21:11)
[2021-10-22] MEDS: *HR* Enoxaparin 40 MG/0.4 ML SYRINGE SQ SCH (05:19)
[2021-10-22] MEDS: Multivit/Ca/Min/Fe/FA 1 TAB TABLET PO SCH ×2 (10:21→10:26)
[2021-10-22] MEDS: Artificial Tears SOLN 15 ML BOTTLE BOTH EYES SCH ×4 (10:25→21:06)
[2021-10-22] MEDS: Lactobacillus 1 EACH CAP.SPRINK PO SCH ×2 (10:26→21:06)
[2021-10-22] MEDS: Cholecalciferol (D-3) 1,000 UNIT (25MCG) TABLET PO SCH (10:26)
[2021-10-22] MEDS: ALPRAZolam 1 MG TABLET PO SCH ×3 (10:26→21:05)
[2021-10-22] MEDS: Chlorhexidine Rinse 15 ML MOUTHWASH MM SCH ×2 (10:26→21:06)
[2021-10-22] MEDS: Latanoprost 2.5 ML BOTTLE LEFT EYE SCH (10:26)
[2021-10-22] MEDS: Carbidopa/Levodopa 25/100 TABLET PO SCH ×3 (10:26→21:06)
[2021-10-22] MEDS: rOPINIRole 1 MG TABLET PO SCH (21:06)
[2021-10-23] MEDS: *HR* Enoxaparin 40 MG/0.4 ML SYRINGE SQ SCH (05:27)
[2021-10-23] MEDS: Cholecalciferol (D-3) 1,000 UNIT (25MCG) TABLET PO SCH (08:12)
[2021-10-23] MEDS: Lactobacillus 1 EACH CAP.SPRINK PO SCH ×2 (08:12→20:17)
[2021-10-23] MEDS: Artificial Tears SOLN 15 ML BOTTLE BOTH EYES SCH ×4 (08:12→20:18)
[2021-10-23] MEDS: Latanoprost 2.5 ML BOTTLE LEFT EYE SCH (08:12)
[2021-10-23] MEDS: Carbidopa/Levodopa 25/100 TABLET PO SCH ×3 (08:12→20:17)
[2021-10-23] MEDS: Multivit/Ca/Min/Fe/FA 1 TAB TABLET PO SCH ×2 (08:13)
[2021-10-23] MEDS: ALPRAZolam 1 MG TABLET PO SCH ×3 (08:13→20:18)
[2021-10-23] MEDS: Chlorhexidine Rinse 15 ML MOUTHWASH MM SCH ×2 (08:13→20:17)
[2021-10-23] MEDS: rOPINIRole 1 MG TABLET PO SCH (20:18)
[2021-10-24] MEDS: *HR* Enoxaparin 40 MG/0.4 ML SYRINGE SQ SCH (04:52)
[2021-10-24] MEDS: Lactobacillus 1 EACH CAP.SPRINK PO SCH ×2 (08:18→20:13)
[2021-10-24] MEDS: Multivit/Ca/Min/Fe/FA 1 TAB TABLET PO SCH ×2 (08:18→08:19)
[2021-10-24] MEDS: Carbidopa/Levodopa 25/100 TABLET PO SCH ×3 (08:18→20:13)
[2021-10-24] MEDS: Artificial Tears SOLN 15 ML BOTTLE BOTH EYES SCH ×4 (08:18→20:13)
[2021-10-24] MEDS: ALPRAZolam 1 MG TABLET PO SCH ×3 (08:19→22:04)
[2021-10-24] MEDS: Latanoprost 2.5 ML BOTTLE LEFT EYE SCH (08:19)
[2021-10-24] MEDS: Chlorhexidine Rinse 15 ML MOUTHWASH MM SCH ×2 (08:19→20:23)
[2021-10-24] MEDS: Cholecalciferol (D-3) 1,000 UNIT (25MCG) TABLET PO SCH (08:19)
[2021-10-24] MEDS: rOPINIRole 1 MG TABLET PO SCH (20:13)
[2021-10-25] MEDS: *HR* Enoxaparin 40 MG/0.4 ML SYRINGE SQ SCH (04:41)
[2021-10-25] MEDS: ALPRAZolam 1 MG TABLET PO SCH ×2 (09:09→15:17)
[2021-10-25] MEDS: Lactobacillus 1 EACH CAP.SPRINK PO SCH (09:10)
[2021-10-25] MEDS: Multivit/Ca/Min/Fe/FA 1 TAB TABLET PO SCH ×2 (09:10→09:20)
[2021-10-25] MEDS: Cholecalciferol (D-3) 1,000 UNIT (25MCG) TABLET PO SCH (09:11)
[2021-10-25] MEDS: Carbidopa/Levodopa 25/100 TABLET PO SCH ×2 (09:11→15:18)
[2021-10-25] MEDS: Artificial Tears SOLN 15 ML BOTTLE BOTH EYES SCH ×2 (09:16→15:17)
[2021-10-25] MEDS: Latanoprost 2.5 ML BOTTLE LEFT EYE SCH (09:16)
[2021-10-25] MEDS: Chlorhexidine Rinse 15 ML MOUTHWASH MM SCH (09:16)
[2021-10-25 11:02] VITALS: BP 120/79; PULSE 62; TEMP 97.9; O2SAT 97
== END 2021-10-25 15:50 ==
LOC: 3BNU 11:09 → EMEROOARM 11:09 → SUATTDRO 19:46 → 3BNU 20:20 → UNDODISOB 10-18 15:16 → 3BNU 10-18 19:20
PROVIDERS: ADMIT Internal Medicine; ATTEND Family Medicine